=== PATIENT | male | born 1980 | race Hispanic/Latino ===

== ENCOUNTER → 2024-03-21 10:41 | Outpatient (REF) | payer OTHER, SELFPAY ==
[2024-03-21 11:55] LABS: ALT (SGPT) 18 U/L (0-50); AST (SGOT) 20 U/L (17-59); Albumin 4.4 g/dl (3.5-5.0); Alkaline Phosphatase 103 U/L (38-126); Blood Urea Nitrogen 13 mg/dl (9-20); Calcium 9.2 mg/dl (8.4-10.2); Carbon Dioxide 28 mmol/L (22-30); Chloride 105 mmol/L (98-107); Glucose 80 mg/dl (70-99); HDL Cholesterol 46 mg/dl; LDL Cholesterol, Calculated 139 mg/dl; Potassium 3.9 mmol/L (3.5-5.1); Sodium 140 mmol/L (135-145); Total Bilirubin 1.7 mg/dl (0.2-1.3); Total Cholesterol 207 mg/dl (50-199); Triglyceride 112 mg/dl (10-149); Very Low Density Lipoprotein 22 mg/dl (0-30); eGFR > 60.00
[2024-03-21 12:00] LABS: Microalbumin, Random Urine 17.2 mg/dl (0.6-1.7); Microalbumin/creatinine Ratio 95.7 mg/g
[2024-03-21 12:09] LABS: Vitamin D, 25-OH*** 20.3 ng/mL (30-80)
[2024-03-21 13:39] LABS: Glycohemoglobin (HgbA1c) 10.6 % (4.0-5.6)
== END ==
LOC: CLINIC 10:41
PROVIDERS: ATTENDING PHYSICIAN Nurse Practitioner Adult Health
DX: E11.65 Type 2 diabetes mellitus with hyperglycemia (principal); R80.9 Proteinuria, unspecified; E55.9 Vitamin D deficiency, unspecified
CPT/HCPCS: 36415; 80053; 80061; 82043; 82306; 82570; 83036